=== PATIENT | female | born 1990 | race Hispanic/Latino ===

== ENCOUNTER 2019-07-15 08:57 | Emergency (ER) | payer OTHER, SELFPAY ==
[2019-07-15 17:23] LABS: SARS-CoV-2 MS2 Positive; SARS-CoV-2 N Gene Positive; SARS-CoV-2 S Gene Positive; SARS-CoV-2 orf1ab Positive
== END 2019-07-15 10:24 | disposition home or self-care (01) ==
LOC: ERS 08:57
DX: U07.1 COVID-19 (principal); R50.9 Fever, unspecified; R19.7 Diarrhea, unspecified; M79.10 Myalgia, unspecified site
CPT/HCPCS: 87635; 99283; U0003

== ENCOUNTER 2019-07-29 10:12 | Emergency (ER) | payer OTHER, SELFPAY ==
[2019-07-30 15:01] LABS: SARS-CoV-2 MS2 Positive; SARS-CoV-2 N Gene Positive; SARS-CoV-2 S Gene Positive; SARS-CoV-2 orf1ab Positive
== END 2019-07-29 10:55 | disposition home or self-care (01) ==
LOC: ERS 10:12
DX: U07.1 COVID-19 (principal)
CPT/HCPCS: 87635; 99283; U0003

== ENCOUNTER 2019-08-08 08:17 | Emergency (ER) | payer OTHER, SELFPAY | END 2019-08-08 09:02 | disposition home or self-care (01) | LOC: ERS 08:17 | DX: U07.1 COVID-19 (principal) | CPT/HCPCS: 99283 ==

== ENCOUNTER 2020-09-26 20:16 | Emergency (ER) | payer OTHER, MEDICAID | END 2020-09-26 21:43 | disposition home or self-care (01) | LOC: ERS 20:16 | DX: G56.01 Carpal tunnel syndrome, right upper limb (principal); Z87.891 Personal history of nicotine dependence ==